=== PATIENT | female | born 1980 | race Hispanic/Latino ===

== ENCOUNTER 2017-09-15 18:15 | Observation (INO) | payer OTHER ==
--- NOTE | 2017-09-15 18:52 | ED PDOC ---
HPI: Female Pain Chief Complaint (Nursing): Abdominal Pain Chief Complaint (Provider): vaginal bleeding History Per: Patient History/Exam Limitations: no limitations Onset/Duration Of Symptoms: Hrs Current Symptoms Are (Timing): Still Present Associated Symptoms: denies: Fever, Nausea, Vomiting Additional Complaint(s): 36 yo ,f, A0 at 6,6 weeks GA , no significant PMHx presents c/o vaginal bleeding started today in the afternoon, not related with any activity, associated with pelvic cramps. She denies fever, dysuria, vaginal discharge, dyspareunia, cough, chest pain, SOB, n,v,d,abd pain. Reports regular menses, LMP : 07/29/17. Had a home urine test positive 2 weeks ago. Will have care in two weeks. Patient already has appt for initiate care. Past Medical History Vital Signs: Last Vital Signs Temp 98.0 F 09/15/17 18:26 Pulse 75 09/15/17 18:26 Resp 16 09/15/17 18:26 BP 127/80 09/15/17 18:26 Pulse Ox 99 09/15/17 18:26 - Family History Family History: States: No Known Family Hx - Home Medications Home Medications: Ambulatory Orders Medication Instructions Recorded Multivit/Folic Acid/I 1 tab PO DAILY 09/15/17 [] - Allergies Allergies/Adverse Reactions: Allergies Allergy/AdvReac Type Severity Reaction Status Date / Time No Known Allergies Allergy Verified 09/15/17 18:26 Review of Systems Genitourinary Female: Positive for: Vaginal Bleeding Physical Exam - Physical Exam Appears: Positive for: Well, No Acute Distress Head Exam: Positive for: ATRAUMATIC, NORMOCEPHALIC Skin: Positive for: Normal Color Neck: Positive for: Normal Cardiovascular/Chest: Positive for: Regular Rate, Rhythm. Negative for: Murmur Respiratory: Positive for: Normal Breath Sounds. Negative for: Crackles, Rhonchi, Wheezing Gastrointestinal/Abdominal: Positive for: Soft. Negative for: Tenderness, Distended, Guarding, Rebound Back: Positive for: Normal Inspection Extremity: Positive for: Normal ROM. Negative for: Tenderness, Pedal Edema Neurologic/Psych: Positive for: Alert, Oriented - Laboratory Results Result Diagrams: 09/16/17 08:05 - ECG O2 Sat by Pulse Oximetry: 99 Medical Decision Making Medical Decision Makin: 45 Initial impression Vaginal bleeding may be secondary to threatening Differential Ectopic , Molar , UTI Plan CBC, PT/INR, PTT, B HCG quant, type screen UA, gc/chlamydia urine preg test: positive Iv fluids RL 1l 20:50 Labs reviewed: CBC normal. TV Us showed: 1) IUP inserted eccentrically within the high left endometrial cavity, concerning for an insterstitial ectopic . this could also represent an annular implanted within the superolateral margin of the uterine cavity. However, it is very concerning for an interstitial ectopic given the limitied amount of surrounding myometrium. A pole is identified with a heart rate of 88 beats per minute. Recommend urgent obstetric and gynecology consultation. 2) Heterogeneous material distending the endometrial canal, likely represents blood products. However, the cervix remains long and closed. 3) Probable corpus luteum within the right ovary. The ovaries are otherwise unremarkable, without torsion. 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 Patient will be admitted Disposition - Clinical Impression Clinical Impression: Vaginal bleeding - Disposition Disposition Time: 22:00 Condition: FAIR
[2017-09-15] MEDS ORDERED: Lactated Ringer's 1,000 ML IV STA (19:00)
[2017-09-15 19:34] LABS: BASO # 0.1 K/uL (0.0-0.2); BASO % 0.5 % (0.0-2.0); EOS # 0.1 K/uL (0.0-0.7); EOS % 0.6 % (0.0-4.0); HEMOGLOBIN 12.8 g/dL (12.0-16.0); LYMPH # 1.9 K/uL (1.0-4.3); LYMPH % 17.2 % (20.0-40.0); MEAN CELL VOLUME 88.5 fl (81.0-99.0); MEAN CORPUSCULAR HEMOGLOBIN 30.3 pg (27.0-31.0); MEAN CORPUSCULAR HGB CONC 34.2 g/dL (33.0-37.0); MEAN PLATELET VOLUME 8.3 fl (7.2-11.7); MONO # 0.7 K/uL (0.0-0.8); MONO % 6.2 % (0.0-10.0); NEUT # 8.2 K/uL (1.8-7.0); NEUT % 75.5 % (50.0-75.0); RBC 4.23 Mil/uL (3.80-5.20); RED CELL DISTRIBUTION WIDTH 12.7 % (11.5-14.5); WHITE BLOOD COUNT 10.9 K/uL (4.8-10.8)
[2017-09-15 19:46] LABS: INR 1.1 (0.9-1.2); PARTIAL THROMBOPLASTIN TIME 33.6 Seconds (25.6-37.1); PROTHROMBIN TIME 12.6 Seconds (9.8-13.1)
[2017-09-15] MEDS ORDERED: Lactated Ringer's 1,000 ML IV SCH (22:00)
[2017-09-16 07:32] VITALS: BP 109/70; PULSE 77; RESP 20; TEMP 98.3; O2SAT 99
[2017-09-16 08:38] LABS: HEMOGLOBIN 12.2 g/dL (12.0-16.0); MEAN CELL VOLUME 88.1 fl (81.0-99.0); MEAN CORPUSCULAR HEMOGLOBIN 30.3 pg (27.0-31.0); MEAN CORPUSCULAR HGB CONC 34.4 g/dL (33.0-37.0); RBC 4.02 Mil/uL (3.80-5.20); RED CELL DISTRIBUTION WIDTH 12.4 % (11.5-14.5); WHITE BLOOD COUNT 6.6 K/uL (4.8-10.8)
--- NOTE | 2017-09-16 10:13 | CP.PCM.HP ---
History of Present Illness - History of Present Illness History of Present Illness: Patient is a 36 yo @ 6.6 wks by LMP (07/29/17), presents with vaginal bleeding. Patient denies CP, N/V, abdominal pain, LOC. Patient on U/S found to have a angular implantation vs possible interstitial vs high cornual implantation. Hgb = 12.8, VSS, patient otherwise clinically stable Present on Admission - Present on Admission Any Indicators Present on Admission: No History of DVT/PE: No History of Uncontrolled Diabetes: No Urinary Catheter: No Decubitus Ulcer Present: No History Surgical Site Infection Following: None Past Patient History - Past Social History Smoking Status: Never Smoked - PSYCHIATRIC Hx Substance Use: No - SURGICAL HISTORY Hx Surgeries: No Meds Allergies/Adverse Reactions: Allergies Allergy/AdvReac Type Severity Reaction Status Date / Time No Known Allergies Allergy Verified 09/15/17 18:26 Physical Exam - Constitutional Appears: Well, Non-toxic - Head Exam Head Exam: ATRAUMATIC - Respiratory Exam Respiratory Exam: NORMAL BREATHING PATTERN - Cardiovascular Exam Cardiovascular Exam: REGULAR RHYTHM - GI/Abdominal Exam GI & Abdominal Exam: Normal Bowel Sounds - Extremities Exam Extremities exam: Positive for: normal inspection Results - Vital Signs Recent Vital Signs: Last Vital Signs Temp 98.0 F 09/15/17 18:26 Pulse 75 09/15/17 18:26 Resp 16 09/15/17 18:26 BP 127/80 09/15/17 18:26 Pulse Ox 99 09/15/17 21:20 - Labs Result Diagrams: 09/16/17 08:05 Labs: Laboratory Results - last 24 hr 09/15/17 09/15/17 09/15/17 19:14 19:27 19:27 WBC 10.9 H RBC 4.23 Hgb 12.8 Hct 37.4 MCV 88.5 MCH 30.3 MCHC 34.2 RDW 12.7 Plt Count 278 MPV 8.3 Neut % (Auto) 75.5 H Lymph % (Auto) 17.2 L [place] % (Auto) 6.2 Eos % (Auto) 0.6 Baso % (Auto) 0.5 Neut # (Auto) 8.2 H Lymph # (Auto) 1.9 [place] # (Auto) 0.7 Eos # (Auto) 0.1 Baso # (Auto) 0.1 PT INR APTT Beta HCG, Quant 09744.00 Blood Type A NEGATIVE Antibody Screen Negative BBK History Checked No verified bt 09/15/17 19:27 WBC RBC Hgb Hct MCV MCH MCHC RDW Plt Count MPV Neut % (Auto) Lymph % (Auto) [place] % (Auto) Eos % (Auto) Baso % (Auto) Neut # (Auto) Lymph # (Auto) [place] # (Auto) Eos # (Auto) Baso # (Auto) PT 12.6 INR 1.1 APTT 33.6 Beta HCG, Quant Blood Type Antibody Screen BBK History Checked Assessment & Plan - Assessment and Plan (Free Text) Assessment: A/P 1. Patient is for clinical observation. Had lengthy discussion with radiologist. Location of at this point seems to look to be more likely a high implantation next to ostia, although interstitial can not be completely excluded. There is no peritoneal fluid and there is only fluid collection in the endometrial cavity. Hgb is stable, FHR = 88. This is very likely to be a threatened . 2. Plan is to closely observe patient and repeat all labs (BHCG and CBC ) in AM and U/S. Pt to be kept NPO and given IVF 3. Pt admitted for observation - Date & Time Date: 09/15/17 Time: 22:11
--- NOTE | 2017-09-16 10:56 | US ---
EXAM: US First Trimester, Transabdominal US , Transvaginal EXAM DATE/TIME: Examination ordered 09/16/2017 10:22 AM. Image number total count reviewed 49 CLINICAL HISTORY: The patient is 36 years old and is female; Signs and symptoms; Lmp or gestational age (in weeks): Lmp 07.29.2017; Other: Heavy vag bleed; ; Patient HX: Had ob tvs done last night, read by vrad; Additional info: Repeat us; Rule out interstitial Facility exam id and description: Us obpregwtv ob preg 1st tri ob transvag TECHNIQUE: Real-time transabdominal and transvaginal obstetrical ultrasound of the maternal pelvis and a first trimester with image documentation. Transvaginal imaging was used for better evaluation of the fetus and adnexa. COMPARISON: US - OB TRANSVAGINAL 2017-09-15 19:19 FINDINGS: GESTATION: There are NO hemorrhagic products in the endometrial sac as previously stated. Instead, there is a "bunch of grapes" masslike structure without internal vascularity, which is hypoechoic and larger than the gestational sac measuring 4.8 cm. Is stable from the prior study. This is felt to represent a partial molar . Gestational sac shape is now very abnormal and irregular in shape with 2 components, similar to dumbbell. There is one gestational sac. There is positive cardiac activity with heart rate of 79 beats per minute. This is quite low. LMP is 07/29/2017. This corresponds to a gestational age of 7 weeks and 0 days. NETO is 05/05/2018 by LMP. There is a gestational sac identified in the uterus. There is a pole identified. There is one fetus. There is NO yolk sac identified. Placenta cannot be evaluated given early gestational age. Amniotic fluid cannot be evaluated given early gestational age. Mean gestational sac size is 1.9 cm corresponding to an ultrasound age of 6 weeks and 2 days. Mean crown-rump length is 0.45 cm, corresponding to an average ultrasound age of 6 weeks and 1 days. PLACENTA/AMNIOTIC FLUID: See above. UTERUS/CERVIX: The uterus is anteverted. The cervix is closed measuring 3.4 cm in length. No myometrial mass. OVARIES: Again, there is a 2.6 x 1.9 cm cyst in the RIGHT ovary. There is peripheral hypervascularity. This likely represents a corpus luteum. LEFT ovary is unremarkable. RIGHT ovary measures 4.1 x 3.7 x 2.6 cm. LEFT ovary measures 2.1 x 1.4 x 2.2 cm. It is normal in size and echogenicity with normal color flow. No mass. FREE FLUID: There is NO free fluid in the cul-de-sac. IMPRESSION: 1. There are NO hemorrhagic products in the endometrial sac as previously stated. Instead, there is a "bunch of grapes" masslike structure without internal vascularity, which is hypoechoic and larger than the gestational sac measuring 4.8 cm. Is stable from the prior study. This is felt to represent a partial molar . 2. Gestational sac shape is now very abnormal and irregular in shape with 2 components, similar to dumbbell. There is one gestational sac. There are likely multiple associated carpal tunnel abnormalities with this . The appearance of the gestational sac is a poor prognostic sign. 3. There is positive cardiac activity with heart rate of 79 beats per minute. This is quite low. This is a poor prognostic sign.
--- NOTE | 2017-09-16 11:52 | CP.PCM.PN ---
Subjective - Date & Time of Evaluation Date of Evaluation: 09/16/17 Time of Evaluation: 11:50 - Subjective Subjective: Patient resting comfortably without complaints. Patient denies any pain or cramping. Patient reports slight spotting. Patient denies any nausea or vomiting , chest pain or shortness of breath, dizziness or lightheadedness. I reviewed ultrasound findings with radiologist. As per radiologist, the ultrasound report shows partial molar . There is no hemorrhage or bleeding noted. As per radiologist, the ultrasound shows atypical "bunch of grapes" appearance typical of a partial molar . I discussed findings with patient. I discussed the patient and information regarding molar pregnancies. I discussed with patient the need for a D&C to confirm diagnosis as well as for treatment. I discussed with patient the likelihood of needing observation and possible medication following procedure to treat molar . All patient questions answered regarding her clinical and radiologic findings. I offered to patient to complete D&C today. After discussion of options, patient requesting to follow up with her [employer] physician at [facility] for second opinion and treatment if needed. Patient is without symptoms at this time other than slight spotting. I discussed with patient that this is a reasonable request , that she should return to the hospital immediately if any bleeding more than spotting. I gave patient a printout of ultrasound report and patient will be given a disc with radiologic pictures. Patient states that she will follow up with her physician at [facility] within the next 1-2 days. Objective - Vital Signs/Intake and Output Vital Signs (last 24 hours): Temp Pulse Resp BP Pulse Ox 98.3 F 77 20 109/70 99 09/16/17 07:31 09/16/17 07:31 09/16/17 07:31 09/16/17 07:31 09/16/17 07:31 - Medications Medications: Current Medications Lactated Ringer's (Lactated Ringer's) 1,000 mls @ 125 mls/hr IV .Q8H ALLEN Last Admin: 09/16/17 09:02 Dose: 125 mls/hr - Labs Labs: 09/16/17 08:05 PT 12.6 Seconds (9.8-13.1) 09/15/17 19:27 INR 1.1 (0.9-1.2) 09/15/17 19:27 APTT 33.6 Seconds (25.6-37.1) 09/15/17 19:27 - Constitutional Appears: Well, Non-toxic, No Acute Distress - Head Exam Head Exam: NORMAL INSPECTION - Eye Exam Eye Exam: Normal appearance - ENT Exam ENT Exam: Mucous Membranes Moist - GI/Abdominal Exam GI & Abdominal Exam: Soft. absent: Distended, Guarding, Tenderness, Rebound - Extremities Exam Extremities Exam: Normal Inspection. absent: Calf Tenderness Assessment and Plan - Assessment and Plan (Free Text) Assessment: partial molar Plan: plan as above.
--- NOTE | 2017-09-18 09:23 | US ---
HISTORY: vaginal bleeding preg ectopic v threatened miscarr COMPARISON: None available. Left central appears report 07/29/2017 suggesting estimated gestational age of 6 weeks 6 days. TECHNIQUE: Transvaginal pelvic ultrasound was performed for evaluation of spontaneous vaginal bleeding, ectopic gestation and threatened . FINDINGS: Intrauterine gestation is identified with yolk sac and pole present within the endometrial cavity. The decidual reaction includes markedly heterogeneous echotexture anteriorly and may be involved with the gestation. This could reflect the submucous myoma or possible partial molar gestation. Clinical and sonographic follow-up are advised. Note is made of a tiny sub serosal myoma hypoechoic measuring 1 cm greatest dimension. current is recorded only 88 beats per minute which is a prognostic indicator. Mean crown-rump length measurement is 4 mm corresponds to an average of the age of 6 weeks 1 day. Mean gestational sac measurement is 1.6 cm corresponding to 5 weeks 6 days estimated gestational age. Both measurements are concordant with the patient's LMP derived dates. The remainder of the myometrium is unremarkable. Normal cervical length at 4.4 cm. Internal os closed. UTERUS: Measures 9.0 x 5.5 x 7.0 cm. As above. ENDOMETRIUM: IUP as above. CERVIX: As above. RIGHT OVARY: Measures 5.0 x 2.3 x 3.1 cm. Likely corpus luteum cyst measuring 3.4 x 2.4 x 2.6 cm Normal flow. LEFT OVARY: Measures 2.3 x 1.2 x 2.1 cm. No solid mass. Normal flow. FREE FLUID: No significant free fluid noted. OTHER FINDINGS: None. IMPRESSION: A single viable intrauterine gestation is identified within the endometrial cavity with relatively low cardiac activity of 88 beats per minute and an average ultrasonic age of 6 weeks 1 day by CRL mean length. Ultrasonic an LMP derived dates are concordant. Consider partial molar gestation as decidual reaction appears irregular anteriorly although this could reflect a sub mucus myoma. Right corpus luteum cyst identified. Please see results from subsequent 09/16/2017 transvaginal obstetric ultrasound feeling additional abnormality suspicious for partial molar gestation. Tiny sub serosal myoma anterior uterine fundus 1.0 cm greatest dimension. Concordant preliminary report from [facility], 09/15/2017. Findings discussed by telephone by a Dr. Kodak Martínez 09/15/2017 8:40 p.m. with Natalia Nelson.
== END 2017-09-16 12:44 | disposition home or self-care (01) ==
LOC: H.ER 18:15 → H.ERHOLD 21:37 → H.MEDSURG1 22:40
PROVIDERS: ADMIT Obstetrics & Gynecology; ATTEND Obstetrics & Gynecology
DX: O02.0 Blighted ovum and nonhydatidiform mole (principal); Z3A.01 Less than 8 weeks gestation of pregnancy
CPT/HCPCS: 36415; 76815; 76817; 81025; 84702; 85025; 85027; 85610; 85730; 86850; 86900; 87491; 87591; 99283; G0378; J7120